=== PATIENT | male | born 1945 | race Caucasian/White ===

== ENCOUNTER 2016-10-08 08:29 | Outpatient (CLI) | payer OTHER ==
--- NOTE | 2016-10-08 13:42 | DIAGNOSTIC IMAGING REPORT ---
PROCEDURE: MR LOWER EXT JOINT WO CONT-LT INDICATION: LEFT KNEE PAIN TECHNIQUE: PD and FAT-SAT PD sagittal and coronal images. FAT-SAT PD axial images. High-resolution T2 sagittal images of the cruciate ligaments. (Total of 6 sequences). COMPARISON: None. FINDINGS: Mild spurring of all three joint compartments. Cruciate and collateral ligaments are normal. Complex tear of the medial meniscus body and posterior horn with moderate joint space narrowing and chondromalacia. Type 2 degeneration of the anterior lateral meniscus, possibly an intrameniscal tear. There is mild chondromalacia of the lateral compartment. Normal quadriceps and patellar tendons. Mild chondromalacia patella. Large joint effusion. Thin medial plica. There is no popliteal cyst. IMPRESSION: 1. Mild spurring of all three joint compartments 2. Complex tear of the medial meniscus body and posterior horn with joint space narrowing 3. Lateral meniscus type 2 degeneration which may represent an intrameniscal tear 4. Chondromalacia of all three joint compartments 5. Large joint effusion with thin medial plica
== END 2016-10-08 23:00 ==
LOC: MRI SRH 08:29
DX: M23.222 Derangement of posterior horn of medial meniscus due to old tear or injury, left knee (principal); M25.462 Effusion, left knee; M67.52 Plica syndrome, left knee; M76.892 Other specified enthesopathies of left lower limb, excluding foot; M94.262 Chondromalacia, left knee

== ENCOUNTER 2017-01-18 16:13 | Outpatient (CLI) | payer OTHER ==
--- NOTE | 2017-01-18 17:39 | DIAGNOSTIC IMAGING REPORT ---
PROCEDURE: XR HIP 2VW W W/O AP PELVIS-LT INDICATION: SCIATICA LEFT TECHNIQUE: AP view of the pelvis and hips with lateral view of the left hip. COMPARISON: None. FINDINGS: Left HIP: Osseous structures and joint spaces are normal. PELVIS: Osseous pelvis is normal. IMPRESSION: 1. Negative pelvis and left hip.
== END 2017-01-18 23:00 ==
LOC: XR SRH 16:13
DX: M54.32 Sciatica, left side (principal); M70.62 Trochanteric bursitis, left hip; M25.552 Pain in left hip